=== PATIENT | female | born 1935 | race Caucasian/White ===

== ENCOUNTER 2017-05-27 05:25 | Inpatient (IN) | payer OTHER ==
[~2017-05-27] VITALS: Ht 162.6 cm; Wt 61.2 kg
[~2017-05-27 05:25] MED LIST: AMOX1TAB5 PO; ASA81 MG; BUPROPION HCL150 M1; CARBIDOPA-LEVO1 EAC4; CARBIDOPA25 MG; CLONAZEPAM0.25 MG/TA; CRESTOR5 MG; CRESTOR5 MG PO; DOCUSATE CALCI240 MG; DOXYCYCLINE HY100 M3 PO; INVANZ1 G/VIAL IV; LEVOFLOXACIN750 MG; MERREM IV; MIRTAZAPINE15 MG; PNEU16DI2; ROPINIROLE HCL0.5 MG; SENNA LAX8.6 MG; SYNTHROID75 MCG; TUSSI PRES-B L120 M1 PO; VANCOMYCIN H1 G/VIAL IV
[2017-05-27] MEDS ORDERED: SYNTHROID50 MCG (05:41)
[2017-05-27] MEDS ORDERED: BUPROPION HCL75 MG (05:41)
[2017-05-27] MEDS ORDERED: CRESTOR5 MG (05:41)
[2017-05-27] MEDS ORDERED: REQUIP0.25 MG (05:42)
== END 2017-06-11 22:07 | disposition expired | DRG 871 ==
LOC: ER 05:25 → MEDI 07:34 → SEC-K 07:34 → MEDI 09:36
PROVIDERS: Surgery
PROC: 3E0F7GC Introduction of Other Therapeutic Substance into Respiratory Tract, Via Natural or Artificial Opening (ICD-10-PCS; 2017-05-27)
PROC: 4A033R1 Measurement of Arterial Saturation, Peripheral, Percutaneous Approach (ICD-10-PCS; 2017-05-27)
PROC: 3E0336Z Introduction of Nutritional Substance into Peripheral Vein, Percutaneous Approach (ICD-10-PCS; 2017-06-04)
PROC: 0DH63UZ Insertion of Feeding Device into Stomach, Percutaneous Approach (ICD-10-PCS; principal; 2017-06-04 10:00)
PROC: B246ZZZ Ultrasonography of Right and Left Heart (ICD-10-PCS; 2017-06-09)
PROC: BB24ZZZ Computerized Tomography (CT Scan) of Bilateral Lungs (ICD-10-PCS; 2017-06-10)
PROC: BW28ZZZ Computerized Tomography (CT Scan) of Head (ICD-10-PCS; 2017-06-10)
PROC: 4A12X4Z Monitoring of Cardiac Electrical Activity, External Approach (ICD-10-PCS; 2017-06-10)
PROC: 05H333Z Insertion of Infusion Device into Right Innominate Vein, Percutaneous Approach (ICD-10-PCS; 2017-06-11)
PROC: 5A09357 Assistance with Respiratory Ventilation, Less than 24 Consecutive Hours, Continuous Positive Airway Pressure (ICD-10-PCS; 2017-06-11)
DX: A41.9 Sepsis, unspecified organism (principal); J69.0 Pneumonitis due to inhalation of food and vomit; I21.4 Non-ST elevation (NSTEMI) myocardial infarction; J96.01 Acute respiratory failure with hypoxia; I50.33 Acute on chronic diastolic (congestive) heart failure; E87.1 Hypo-osmolality and hyponatremia; G23.1 Progressive supranuclear ophthalmoplegia [Steele-Richardson-Olszewski]; E46 Unspecified protein-calorie malnutrition; B37.0 Candidal stomatitis; B37.49 Other urogenital candidiasis; E86.0 Dehydration; R13.19 Other dysphagia; F03.90 Unspecified dementia, unspecified severity, without behavioral disturbance, psychotic disturbance, mood disturbance, and anxiety; Z74.01 Bed confinement status; I11.0 Hypertensive heart disease with heart failure; Z95.0 Presence of cardiac pacemaker